=== PATIENT | female | born 1970 | race Two or more races ===

== ENCOUNTER 2023-10-12 06:25 | Day surgery (SDC) | payer OTHER, SELFPAY ==
[2023-10-12 12:04] VITALS: BMI 19.0
[2023-10-12 12:05] VITALS: BMI 19.0
[2023-10-12 12:15] VITALS: BP 141/80
[2023-10-12 15:15] VITALS: BP 104/71
[2023-10-12 15:33] VITALS: BP 107/69
[2023-10-12 15:41] VITALS: BP 101/77
== END 2023-10-12 16:00 | disposition home or self-care (01) ==
LOC: SDS 06:25
PROVIDERS: ATTENDING PHYSICIAN Internal Medicine Gastroenterology
DX: R19.7 Diarrhea, unspecified (principal); K59.00 Constipation, unspecified; K64.0 First degree hemorrhoids; K31.A0 Gastric intestinal metaplasia, unspecified; K31.89 Other diseases of stomach and duodenum; Q40.2 Other specified congenital malformations of stomach; R10.84 Generalized abdominal pain
CPT/HCPCS: 43242; 45380; 43239; 88305; 88342

== ENCOUNTER 2024-09-25 12:58 | Outpatient (RCR) | payer OTHER, SELFPAY | END 2024-09-25 23:59 | disposition home or self-care (01) | LOC: RPT 12:58 | PROVIDERS: ATTENDING PHYSICIAN Urology | DX: R35.0 Frequency of micturition (principal); N95.8 Other specified menopausal and perimenopausal disorders; N81.6 Rectocele; K52.9 Noninfective gastroenteritis and colitis, unspecified; Z73.6 Limitation of activities due to disability; N81.11 Cystocele, midline; R14.0 Abdominal distension (gaseous); N39.3 Stress incontinence (female) (male) | CPT/HCPCS: 97110; 97140; 97163; 97530 ==

== ENCOUNTER 2024-10-16 11:21 | Outpatient (RCR) | payer OTHER, SELFPAY | END 2024-10-16 23:59 | disposition home or self-care (01) | LOC: RPT 11:21 | PROVIDERS: ATTENDING PHYSICIAN Urology | DX: R35.0 Frequency of micturition (principal); N95.8 Other specified menopausal and perimenopausal disorders; N81.6 Rectocele; K52.9 Noninfective gastroenteritis and colitis, unspecified; Z73.6 Limitation of activities due to disability; N81.11 Cystocele, midline; R14.0 Abdominal distension (gaseous); N39.3 Stress incontinence (female) (male) | CPT/HCPCS: 97110; 97530 ==

== ENCOUNTER 2024-12-03 08:45 | Outpatient (RCR) | payer OTHER, SELFPAY | END 2024-12-03 23:59 | disposition home or self-care (01) | LOC: RPT 08:45 | PROVIDERS: ATTENDING PHYSICIAN Urology | DX: R35.0 Frequency of micturition (principal); N95.8 Other specified menopausal and perimenopausal disorders; N81.6 Rectocele; K52.9 Noninfective gastroenteritis and colitis, unspecified; Z73.6 Limitation of activities due to disability; N81.11 Cystocele, midline; R14.0 Abdominal distension (gaseous); N39.3 Stress incontinence (female) (male) | CPT/HCPCS: 97140; 97530 ==

== ENCOUNTER 2025-01-08 12:04 | Outpatient (RCR) | payer OTHER, SELFPAY | END 2025-01-08 23:59 | disposition home or self-care (01) | LOC: RPT 12:04 | PROVIDERS: ATTENDING PHYSICIAN Urology | DX: R35.0 Frequency of micturition (principal); N95.8 Other specified menopausal and perimenopausal disorders; N81.6 Rectocele; K52.9 Noninfective gastroenteritis and colitis, unspecified; Z73.6 Limitation of activities due to disability; N81.11 Cystocele, midline; R14.0 Abdominal distension (gaseous); N39.3 Stress incontinence (female) (male) | CPT/HCPCS: 97140; 97530 ==

== ENCOUNTER 2025-02-05 10:08 | Outpatient (RCR) | payer OTHER, SELFPAY | END 2025-02-05 23:59 | disposition home or self-care (01) | LOC: RPT 10:08 | PROVIDERS: ATTENDING PHYSICIAN Urology | DX: R35.0 Frequency of micturition (principal); N95.8 Other specified menopausal and perimenopausal disorders; N81.6 Rectocele; K52.9 Noninfective gastroenteritis and colitis, unspecified; Z73.6 Limitation of activities due to disability; N81.11 Cystocele, midline; R14.0 Abdominal distension (gaseous); N39.3 Stress incontinence (female) (male) | CPT/HCPCS: 97014; 97110; 97112; 97140; 97530 ==

== ENCOUNTER 2025-03-11 08:38 | Outpatient (RCR) | payer OTHER, SELFPAY | END 2025-03-11 23:59 | disposition home or self-care (01) | LOC: RPT 08:38 | PROVIDERS: ATTENDING PHYSICIAN Urology | DX: R35.0 Frequency of micturition (principal); N95.8 Other specified menopausal and perimenopausal disorders; N81.6 Rectocele; K52.9 Noninfective gastroenteritis and colitis, unspecified; Z73.6 Limitation of activities due to disability; N81.11 Cystocele, midline; R14.0 Abdominal distension (gaseous); N39.3 Stress incontinence (female) (male) | CPT/HCPCS: 97014; 97112; 97140; 97530 ==